=== PATIENT | male | born 2000 | race Caucasian/White ===

== ENCOUNTER 2020-01-12 13:32 | Outpatient (CLI) | payer OTHER | END 2020-01-12 13:55 | disposition home or self-care (01) | LOC: SONOGRAMA 13:32 → MAMO-SONO 13:45 → SONOGRAMA 13:55 | PROVIDERS: ATTEND Urology | DX: R35.0 Frequency of micturition (principal); N32.81 Overactive bladder; R33.8 Other retention of urine ==